=== PATIENT | female | born 1980 | race Caucasian/White ===

== ENCOUNTER → 2016-12-20 | Outpatient (CLI) | payer OTHER | LOC: RAD 15:40 | DX: M79.601 Pain in right arm (principal); R20.2 Paresthesia of skin | CPT/HCPCS: 72040; 73060 ==

== ENCOUNTER 2017-01-18 13:28 | Emergency (ER) | payer OTHER | END 2017-01-18 15:40 | disposition home or self-care (01) | LOC: ER1 13:28 | DX: S93.402A Sprain of unspecified ligament of left ankle, initial encounter (principal); F17.210 Nicotine dependence, cigarettes, uncomplicated; W01.0XXA Fall on same level from slipping, tripping and stumbling without subsequent striking against object, initial encounter; X50.1XXA Overexertion from prolonged static or awkward postures, initial encounter; Y92.007 Garden or yard of unspecified non-institutional (private) residence as the place of occurrence of the external cause | CPT/HCPCS: 73610; 99283 ==